=== PATIENT | female | born 1970 | race American Indian/Alaskan Native ===

== ENCOUNTER 2017-05-28 19:45 | Emergency (ER) | payer SELFPAY ==
--- NOTE | 2017-05-28 20:16 | Emergency Department Report ---
ED Seizure HPI - General Chief Complaint: Seizure Stated Complaint: SEIZURE Time Seen by Provider: 05/28/17 20:10 Source: EMS Mode of arrival: Stretcher Limitations: No Limitations - History of Present Illness Initial Comments: 46-year-old female with a history of seizures presents to emergency department after 2 tonic-clonic seizures for approximately 30 seconds. He witnessed by her daughter. She's been out of her Dilantin for approximately 5 days. She denies fevers chills nausea vomiting. Has no other complaints at this time. She otherwise appears well. -: Sudden Description of Episode: tonic-clonic movement -: second(s) (30 seconds) Witnessed:: Yes Trauma: No Seizure History: known seizure disorder, history of non-compliance Possible Precipitating Event: none Associated Symptoms: tongue injury. denies: chest pain, confusion, cough, loss of appetite, malaise, rash, syncope, weakness, shoulder dislocation - Related Data Home Medications Medication Instructions Recorded Confirmed Last Taken Zolpidem Tartrate [Edluar SUBL] 10 mg SL QHS PRN 11/20/15 03/05/16 1 Day Ago 10 Previous Rx's Medication Instructions Recorded Last Taken Type ALPRAZolam [Xanax TAB] 0.5 mg PO TID #90 tablet 07/27/14 1 Day Ago Rx 0.5 Famotidine [Pepcid] 20 mg PO BID #60 tablet 03/12/16 Unknown Rx Losartan [Cozaar] 100 mg PO QDAY #30 tablet 03/12/16 Unknown Rx Sertraline [Zoloft] 100 mg PO DAILY #30 tablet 03/12/16 Unknown Rx levETIRAcetam [Keppra TAB] 500 mg PO BID #60 tablet 05/28/17 Unknown Rx Allergies Allergy/AdvReac Type Severity Reaction Status Date / Time morphine AdvReac Vomiting Verified 06/07/15 13:30 ED Review of Systems ROS: Stated complaint: SEIZURE Other details as noted in HPI Comment: All other systems reviewed and negative Constitutional: denies: chills, fever Eyes: denies: eye pain, eye discharge, vision change ENT: denies: ear pain, throat pain Respiratory: denies: cough, shortness of breath, wheezing Cardiovascular: denies: chest pain, palpitations Endocrine: no symptoms reported Gastrointestinal: denies: abdominal pain, nausea, diarrhea Genitourinary: denies: urgency, dysuria, discharge Musculoskeletal: denies: back pain, joint swelling, arthralgia Skin: denies: rash, lesions Neurological: denies: headache, weakness, paresthesias Psychiatric: denies: anxiety, depression Hematological/Lymphatic: denies: easy bleeding, easy bruising ED Past Medical Hx - Past Medical History Previous Medical History?: Yes Hx Hypertension: Yes Hx Congestive Heart Failure: No Hx Diabetes: No Hx Seizures: Yes Hx Psychiatric Treatment: Yes (ANXIETY) Hx Asthma: No Hx COPD: No Hx HIV: No Additional medical history: pancreatitis - Surgical History Past Surgical History?: Yes Hx Appendectomy: Yes Additional Surgical History: GASTRIC SLEEVE 2013. LEFT FOOT SURDERY - Social History Smoking Status: Unknown if ever smoked Substance Use Type: None - Medications Home Medications: Home Medications Medication Instructions Recorded Confirmed Last Taken Type ALPRAZolam [Xanax TAB] 0.5 mg PO TID #90 tablet 07/27/14 03/05/16 1 Day Ago Rx 0.5 Zolpidem Tartrate [Edluar SUBL] 10 mg SL QHS PRN 11/20/15 03/05/16 1 Day Ago History 10 Famotidine [Pepcid] 20 mg PO BID #60 tablet 03/12/16 Unknown Rx Losartan [Cozaar] 100 mg PO QDAY #30 tablet 03/12/16 Unknown Rx Sertraline [Zoloft] 100 mg PO DAILY #30 tablet 03/12/16 Unknown Rx levETIRAcetam [Keppra TAB] 500 mg PO BID #60 tablet 05/28/17 Unknown Rx ED Physical Exam - General Limitations: No Limitations General appearance: alert, in no apparent distress - Head Head exam: Present: atraumatic, normocephalic - Eye Eye exam: Present: normal appearance. Absent: scleral icterus, conjunctival injection - ENT ENT exam: Present: mucous membranes moist, other (slight tongue trauma to the left lateral edge) - Neck Neck exam: Present: normal inspection - Respiratory Respiratory exam: Present: normal lung sounds bilaterally. Absent: respiratory distress - Cardiovascular Cardiovascular Exam: Present: regular rate, normal rhythm. Absent: systolic murmur, diastolic murmur, rubs, gallop - GI/Abdominal GI/Abdominal exam: Present: soft, normal bowel sounds - Extremities Exam Extremities exam: Present: normal inspection - Back Exam Back exam: Present: normal inspection - Neurological Exam Neurological exam: Present: alert, oriented X3 - Psychiatric Psychiatric exam: Present: normal affect, normal mood - Skin Skin exam: Present: warm, dry, intact, normal color. Absent: rash ED Course Vital Signs 05/28/17 19:52 Temperature 98.2 F Pulse Rate 102 H Respiratory 18 Rate Blood Pressure 129/74 O2 Sat by Pulse 100 Oximetry ED Medical Decision Making - Lab Data Result diagrams: 05/28/17 20:53 05/28/17 20:53 Laboratory Results - last 24 hr 05/28/17 05/28/17 05/28/17 20:53 20:53 21:13 WBC 4.5 RBC 3.42 L Hgb 9.9 L Hct 30.8 MCV 90 MCH 29 MCHC 32 RDW 17.0 H Plt Count 107 L Lymph % (Auto) 16.1 [place] % (Auto) 14.3 H Eos % (Auto) 2.4 Baso % (Auto) 0.7 Lymph # 0.7 L [place] # 0.6 Eos # 0.1 Baso # 0.0 Seg Neutrophils % 66.5 Seg Neutrophils # 3.0 Sodium 138 Potassium 3.4 L Chloride 100.0 Carbon Dioxide 25 Anion Gap 16 BUN 13 Creatinine 0.6 L Estimated GFR > 60 BUN/Creatinine Ratio 21.66 Glucose 115 H Calcium 8.5 Total Bilirubin 0.30 AST 44 H ALT 28 Alkaline Phosphatase 84 Total Protein 7.5 Albumin 3.5 L Albumin/Globulin Ratio 0.9 Phenytoin 0.8 L - Medical Decision Making 46-year-old female known seizure disorder here with seizure 2. Patient had 2 tonic-clonic seizures for approximately 30 seconds. These were witnessed by daughter. She believes she is on Dilantin. Plan to check her Dilantin level and check basic labs. Patient has no other complaints otherwise. After further discussion with patient she told me that she is not actually on Dilantin but instead on Keppra. She called her primary care physician who told her. Plan to give her a dose of 1000 mg of IV Keppra and discharged patient home. I will discharge her with a prescription 500 mg Keppra twice a day. Portions of this chart were dictated with dictation software. There may be dictation errors contained within this note. Critical care attestation.: If time is entered above; I have spent that time in minutes in the direct care of this critically ill patient, excluding procedure time. ED Disposition Clinical Impression: Seizure Disposition: [id number]-01 TO HOME OR SELFCARE Is pt being admited?: No Condition: Stable Instructions: Recurrent Seizures Adult (ED) Prescriptions: levETIRAcetam [Keppra TAB] 500 mg PO BID #60 tablet Referrals: PRIMARY CARE, [Primary Care Provider] - 3-5 Days
[2017-05-28 21:14] LABS: Basophils % (Auto) 0.7 % (0.0-1.8); Eosinophils % (Auto) 2.4 % (0.0-4.3); Hematocrit 30.8 % (30.3-42.9); Hemoglobin 9.9 gm/dl (10.1-14.3); Mean Corpuscular HGB Conc 32 % (30-34); Mean Corpuscular Hemoglobin 29 pg (28-32); Mean Corpuscular Volume 90 fl (79-97); Platelet Count 107 K/mm3 (140-440); Red Blood Count 3.42 M/mm3 (3.65-5.03); White Blood Count 4.5 K/mm3 (4.5-11.0)
[2017-05-28 21:46] LABS: Alanine Aminotransferase 28 units/L (7-56); Albumin 3.5 g/dL (3.9-5); Albumin/Globulin Ratio 0.9 %; Alkaline Phosphatase 84 units/L (35-129); Anion Gap 16 mmol/L; BUN/Creatinine Ratio 21.66; Blood Urea Nitrogen 13 mg/dL (7-17); Calcium 8.5 mg/dL (8.4-10.2); Carbon Dioxide 25 mmol/L (22-30); Glucose 115 mg/dL (65-100); Potassium 3.4 mmol/L (3.6-5.0); Sodium 138 mmol/L (137-145); Total Protein 7.5 g/dL (6.3-8.2)
[2017-05-28] MEDS ORDERED: CEREBYX IV ONE ×2 (22:35→23:00)
[2017-05-28] MEDS ORDERED: KEPPRA 1,000 MG in D5W 100 ML IV ONE (22:48)
[2017-05-28 22:58] LABS: Urine Drugs of Abuse Note Disclamer
[2017-05-28] MEDS ORDERED: KEPPRA 1,000 MG/NS 0.75% 100ML 1,000 MG/100 ML BAG IV ONE ×2 (22:58→23:00)
[2017-05-28] MEDS ORDERED: [UNRECOGNIZED DRUG - OTHER] IV ONE (23:00)
[2017-05-28] MEDS ORDERED: NACL IV ONE (23:00)
[2017-05-28 23:11] LABS: Bacteria,Urine 3+ /HPF (Negative); Bilirubin,Urine NEG (Negative); Blood,Urine MOD (Negative); Ketones,Urine NEG (Negative); Leukocyte Esterase,Urine MOD (Negative); Mucus,Urine 2+ /HPF; Nitrite,Urine POS (Negative); Urobilinogen,Urine < 2.0 mg/dL (<2.0)
[2017-05-29 00:03] VITALS: BP 129/74
== END 2017-05-28 23:30 | disposition home or self-care (01) ==
LOC: ED 19:45
DX: R56.9 Unspecified convulsions (principal); I10 Essential (primary) hypertension; F41.9 Anxiety disorder, unspecified; Z88.5 Allergy status to narcotic agent
CPT/HCPCS: 36415; 80053; 80185; 80307; 81001; 85025; 99284; J1953; J7050; Q2009